=== PATIENT | female | born 1950 | race Caucasian/White ===

== ENCOUNTER 2017-01-25 08:18 | Emergency (ER) | payer OTHER ==
[~2017-01-25] VITALS: Ht 180.3 cm; Wt 89.9 kg
[2017-01-25] MEDS ORDERED: ALBUTEROL/IPRATROPIUM 2.5MG/0.5MG, 3 ML NPPB ONE (10:00)
[2017-01-25] MEDS ORDERED: SODIUM CHLORIDE FLUSH 10ML SYR IVF ONE (10:00)
[2017-01-25 10:43] LABS: BLOOD UREA NITROGEN 9 mg/dL (7-18)
[2017-01-25 10:49] LABS: HEMATOCRIT 38.2 % (34.6-47.8); HEMOGLOBIN 13.2 g/dL (11.7-16.4); WHITE BLOOD COUNT 7.7 x10^3/uL (3.4-10)
[2017-01-25 10:51] LABS: IS PT STATUS REG ER OR PRE ER? YES
[2017-01-25] MEDS ORDERED: ALBUTEROL/IPRATROPIUM 2.5MG/0.5MG, 3 ML ONE (12:00)
[2017-01-25 12:30] VITALS: BP 120/71
== END 2017-01-25 13:26 | disposition home or self-care (01) ==
LOC: ED 10:11
DX: J20.9 Acute bronchitis, unspecified (principal); B96.89 Other specified bacterial agents as the cause of diseases classified elsewhere
CPT/HCPCS: 36415; 71020; 80048; 82040; 83605; 83880; 84484; 85025; 85379; 85610; 85730; 87040; 93005; 94640; 99285; J7620

== ENCOUNTER 2020-02-17 14:03 | Outpatient (CLI) | payer MEDICARE, OTHER | END 2020-02-17 23:59 | disposition home or self-care (01) | LOC: CFH 14:03 | PROVIDERS: ATTEND Nurse Practitioner Primary Care | DX: Z12.31 Encounter for screening mammogram for malignant neoplasm of breast (principal) | CPT/HCPCS: 77063; 77067 ==

== ENCOUNTER 2020-03-02 14:10 | Outpatient (CLI) | payer MEDICARE, OTHER | END 2020-03-02 23:59 | disposition home or self-care (01) | LOC: CFH 14:10 | PROVIDERS: ATTEND Family Medicine | DX: N60.82 Other benign mammary dysplasias of left breast (principal); R92.8 Other abnormal and inconclusive findings on diagnostic imaging of breast | CPT/HCPCS: 76642; 77061; 77063; 77065; G0279 ==